=== PATIENT | male | born 1950 | race Caucasian/White ===

== ENCOUNTER 2021-04-13 13:04 | Inpatient (IN) | payer OTHER ==
[2021-04-13 13:45] VITALS: BMI 27.0
[2021-04-13 16:16] LABS: BASO % 0.2 % (0-2.0); EOS % 0.1 % (0-4.5); HEMATOCRIT 38.7 % (35.4-49); HEMOGLOBIN 12.7 GM/dL (11.7-16.9); LYMPH % 6.3 % (8-40); MCH 29.4 pg (25.7-33.7); MCHC 32.8 g/dl (32.0-35.9); MEAN CELL VOLUME 89.8 fl (80-96); MEAN PLT VOLUME 7.6 fl (7.5-11.1); MONO % 6.3 % (3.8-10.2); NEUT % 87.1 % (42.8-82.8); PLATELET COUNT 301 K/MM3 (134-434); RBC 4.31 M/mm3 (4.00-5.60); RDW 14.2 % (11.9-15.9); VENOUS BASE EXCESS -5.3 mmol/L (-2-2); VENOUS O2 SATURATION 29.1 % (70-80); VENOUS PCO2 52.7 mmHg (38-52); VENOUS PH 7.246 (7.310-7.410); WHITE BLOOD COUNT 18.2 K/mm3 (4.0-10.0)
[2021-04-13 16:31] LABS: INR 1.21 (0.83-1.09); PROTHROMBIN TIME (PATIENT) 14.6 SEC (9.7-13.0)
[2021-04-13 16:33] LABS: ACTIVATED PTT 27.7 SECONDS (25.2-36.5)
[2021-04-13] MEDS ORDERED: SODIUM CHLORIDE 1,000 ML IV STA (16:37)
[2021-04-13 16:43] LABS: CHLORIDE 104 mmol/L (98-107); LACTIC ACID 4.1 mmol/L (0.4-2.0); SODIUM 138 mmol/L (136-145)
[2021-04-13 16:46] LABS: ALBUMIN 3.5 g/dl (3.4-5.0); CALCIUM 9.1 mg/dL (8.5-10.1)
[2021-04-13 16:47] LABS: ANION GAP 10 MMOL/L (8-16); BLOOD UREA NITROGEN 24.9 mg/dL (7-18); CO2 23 mmol/L (21-32); GLUCOSE,RANDOM 104 mg/dL (74-106); MAGNESIUM 2.1 mg/dL (1.8-2.4)
[2021-04-13 16:50] LABS: CREATININE 2.2 mg/dL (0.55-1.3); PHOSPHOROUS 2.9 mg/dL (2.5-4.9); SGOT/AST 17 U/L (15-37); SGPT/ALT 20 U/L (13-61)
[2021-04-13 16:51] LABS: BILIRUBIN,TOTAL 0.5 mg/dL (0.2-1); TOT PROT 8.4 g/dl (6.4-8.2)
[2021-04-13] MEDS ORDERED: SODIUM CHLORIDE 0.9% 500 ML INFUS.BAG IV ONE (16:51)
[2021-04-13 16:52] LABS: ALK PHOS 94 U/L (45-117)
[2021-04-13 17:21] LABS: EPI CELLS 4 /uL (0-25.1); HYALINE CASTS 1 /uL (0-3.1); PH,URINE 5.5 (5.0-8.0); URINE APPEARANCE TURBID; URINE BACTERIA >9,000 /uL (0-1359); URINE BILIRUBIN NEGATIVE (NEGATIVE); URINE COLOR YELLOW; URINE GLUCOSE (UA) NEGATIVE (NEGATIVE); URINE KETONE TRACE (NEGATIVE); URINE LEUK ESTERASE 3+ (NEGATIVE); URINE NITRITE POSITIVE (NEGATIVE); URINE PROTEIN 2+ (NEGATIVE); URINE RBC 31 /uL (0-23.9); URINE WBC 3149 /uL (0-25.8)
[2021-04-13] MEDS ORDERED: CEFTRIAXONE 1,000 MG in DEXTROSE 5%-WATER - 50 ML IVPB ONE (17:23)
[2021-04-13] MEDS ORDERED: cefTRIAXone SODIUM 1 GM VIAL ONE (17:28)
[2021-04-13 17:53] LABS: OSMOLALITY,SERUM 296 mosm/kg (278-305)
[2021-04-13 18:18] LABS: PHENCYCLIDINE,URINE NEGATIVE ng/ml (CUTOFF=25); URINE BARBITURATES NEGATIVE ng/ml (CUTOFF=200); URINE BENZODIAZEPINES NEGATIVE ng/ml (CUTOFF=200)
[2021-04-13 18:19] LABS: METHADONE, UR NEGATIVE ng/ml (CUTOFF=300)
[2021-04-13 18:25] LABS: COCAINE, UR NEGATIVE ng/ml (CUTOFF=300); OPIATES, URI NEGATIVE ng/ml (CUTOFF=300); URINE AMPHETAMINES NEGATIVE ng/ml (CUTOFF=500)
[2021-04-13] MEDS ORDERED: OXcarbazepine 300 MG/5 ML UNIT DOSE CUPS PO ONE (23:04)
[2021-04-13] MEDS ORDERED: levETIRAcetam 500 MG TABLET (FP) PO ONE ×2 (23:04→23:11)
[2021-04-14] MEDS ORDERED: DEXTROSE 5%-WATER - 50 ML IVPB ONE (01:21)
[2021-04-14] MEDS ORDERED: PIPERACILLIN/TAZOBACTAM 3.375 GM VIAL IVPB ONE (01:21)
[2021-04-14] MEDS ORDERED: ACETAMINOPHEN 1000 MG/100 ML VIAL (NON FORMULARY) IVPB ONE (01:45)
[2021-04-14] MEDS ORDERED: PIPERACILLIN/TAZOB 3.375 GM 3.375 GM in DEXTROSE 5%-WATER - 50 ML IVPB SCH (02:00)
[2021-04-14 07:10] LABS: BASO % 0.2 % (0-2.0); EOS % 0.2 % (0-4.5); HEMATOCRIT 33.9 % (35.4-49); HEMOGLOBIN 11.3 GM/dL (11.7-16.9); MCH 29.8 pg (25.7-33.7); MCHC 33.4 g/dl (32.0-35.9); MEAN PLT VOLUME 7.2 fl (7.5-11.1); MONO % 10.3 % (3.8-10.2); NEUT % 76.3 % (42.8-82.8); PLATELET COUNT 259 K/MM3 (134-434); RBC 3.81 M/mm3 (4.00-5.60); RDW 14.3 % (11.9-15.9); WHITE BLOOD COUNT 13.4 K/mm3 (4.0-10.0)
[2021-04-14 07:53] LABS: BLOOD UREA NITROGEN 19.8 mg/dL (7-18); CALCIUM 7.9 mg/dL (8.5-10.1); MAGNESIUM 1.9 mg/dL (1.8-2.4)
[2021-04-14 07:56] LABS: CREATININE 1.8 mg/dL (0.55-1.3)
[2021-04-14 07:57] LABS: BILIRUBIN,TOTAL 0.9 mg/dL (0.2-1); PHOSPHOROUS 3.6 mg/dL (2.5-4.9); TOT PROT 6.7 g/dl (6.4-8.2)
[2021-04-14 08:00] LABS: ALBUMIN 2.6 g/dl (3.4-5.0)
[2021-04-14] MEDS ORDERED: DEXTROSE 5%-WATER 100 ML IVPB ONE (09:03)
[2021-04-14] MEDS: CEFTRIAXONE 2 GM in DEXTROSE 5%-WATER 100 ML IVPB SCH (09:25)
[2021-04-14] MEDS: POLYETHYLENE GLYCOL 3350 119 GM BTL PO SCH (09:26)
[2021-04-14] MEDS: HEPARIN NA (PORCINE) 5,000 UNITS/ML 1ML VIAL SQ SCH ×2 (09:26→22:02)
[2021-04-14] MEDS: ACETAMINOPHEN 1000 MG/100 ML VIAL (NON FORMULARY) IVPB PRN ×3 (09:47→22:03)
[2021-04-14] MEDS: levETIRAcetam 500 MG TABLET (FP) PO SCH ×2 (10:17→22:03)
[2021-04-14] MEDS: OXcarbazepine 300 MG/5 ML 250 ML BULK BOTTLE PO SCH ×2 (10:17→23:08)
[2021-04-14] MEDS: amLODIPine BESYLATE 10 MG TABLET (FP) PO SCH (10:17)
[2021-04-14] MEDS: SODIUM CHLORIDE 0.45% 1,000 ML IV SCH (10:19)
[2021-04-14] MEDS ORDERED: OXcarbazepine 300 MG TABLET (UD) PO SCH (10:30)
[2021-04-15] MEDS ORDERED: DEXTROSE 5%-WATER 100 ML IVPB ONE ×2 (08:35→12:21)
[2021-04-15] MEDS ORDERED: ACETAMINOPHEN 325 MG TABLET (FP) PO PRN (08:43)
[2021-04-15] MEDS: POLYETHYLENE GLYCOL 3350 119 GM BTL PO SCH (09:11)
[2021-04-15] MEDS: HEPARIN NA (PORCINE) 5,000 UNITS/ML 1ML VIAL SQ SCH ×2 (09:12→21:20)
[2021-04-15] MEDS: levETIRAcetam 500 MG TABLET (FP) PO SCH ×2 (09:12→21:20)
[2021-04-15] MEDS: CEFTRIAXONE 2 GM in DEXTROSE 5%-WATER 100 ML IVPB SCH (09:12)
[2021-04-15 10:00] LABS: BASO % 0.4 % (0-2.0); EOS % 0.4 % (0-4.5); HEMOGLOBIN 11.4 GM/dL (11.7-16.9); MCH 29.1 pg (25.7-33.7); MCHC 32.7 g/dl (32.0-35.9); MEAN CELL VOLUME 89.2 fl (80-96); MONO % 8.7 % (3.8-10.2); NEUT % 79.5 % (42.8-82.8); PLATELET COUNT 307 K/MM3 (134-434); RBC 3.93 M/mm3 (4.00-5.60); RDW 14.5 % (11.9-15.9)
[2021-04-15] MEDS ORDERED: VANCOMYCIN 1 GM in D5W (PRE-DOCKED) 1,000 MG/250 ML IVPB SCH (10:00)
[2021-04-15 10:27] LABS: ALBUMIN 2.7 g/dl (3.4-5.0); BLOOD UREA NITROGEN 16.4 mg/dL (7-18)
[2021-04-15 10:29] LABS: CREATININE 1.5 mg/dL (0.55-1.3)
[2021-04-15 10:30] LABS: TOT PROT 6.9 g/dl (6.4-8.2)
[2021-04-15] MEDS: SODIUM CHLORIDE 0.45% 1,000 ML IV SCH (10:35)
[2021-04-15 10:37] LABS: BILIRUBIN,TOTAL 0.4 mg/dL (0.2-1)
[2021-04-15] MEDS: amLODIPine BESYLATE 10 MG TABLET (FP) PO SCH (10:53)
[2021-04-15] MEDS ORDERED: PT OWN MED DRAWER 7, Y5N ONE ×2 (11:21→19:55)
[2021-04-15] MEDS: OXcarbazepine 300 MG/5 ML 250 ML BULK BOTTLE PO SCH ×2 (11:24→21:21)
[2021-04-15] MEDS ORDERED: metoPROLOL SUCCINATE 25 MG TAB.SR.24H (FP) PO ONE (12:11)
[2021-04-15] MEDS ORDERED: ACETAMINOPHEN 1000 MG/100 ML VIAL (NON FORMULARY) IVPB PRN (12:13)
[2021-04-15] MEDS ORDERED: MEROPENEM 1 GM VIAL (RESTRICTED TO ID) IVPB ONE (12:21)
[2021-04-15] MEDS ORDERED: MEROPENEM 1 GM in DEXTROSE 5%-WATER 100 ML IVPB SCH ×2 (13:00→18:00)
[2021-04-15] MEDS: MEROPENEM 500 MG in DEXTROSE 5%-WATER 100 ML IVPB SCH ×2 (14:30→17:22)
[2021-04-15] MEDS ORDERED: MEROPENEM 500 MG VIAL (RESTRICTED TO ID) IVPB ONE (17:19)
[2021-04-16] MEDS ORDERED: DEXTROSE 5%-WATER 100 ML IVPB ONE ×2 (01:00→09:23)
[2021-04-16] MEDS ORDERED: MEROPENEM 500 MG VIAL (RESTRICTED TO ID) IVPB ONE ×2 (01:00→09:22)
[2021-04-16] MEDS: MEROPENEM 500 MG in DEXTROSE 5%-WATER 100 ML IVPB SCH ×3 (01:11→18:41)
[2021-04-16 07:45] LABS: BASO % 0.8 % (0-2.0); EOS % 0.4 % (0-4.5); HEMATOCRIT 32.3 % (35.4-49); HEMOGLOBIN 10.8 GM/dL (11.7-16.9); LYMPH % 17.9 % (8-40); MCH 29.4 pg (25.7-33.7); MCHC 33.4 g/dl (32.0-35.9); MEAN CELL VOLUME 87.9 fl (80-96); NEUT % 72.9 % (42.8-82.8); PLATELET COUNT 299 K/MM3 (134-434); RBC 3.67 M/mm3 (4.00-5.60); RDW 14.5 % (11.9-15.9); WHITE BLOOD COUNT 11.4 K/mm3 (4.0-10.0)
[2021-04-16 07:51] LABS: ALBUMIN 2.3 g/dl (3.4-5.0); BLOOD UREA NITROGEN 12.4 mg/dL (7-18); CALCIUM 7.6 mg/dL (8.5-10.1)
[2021-04-16 07:55] LABS: CREATININE 1.1 mg/dL (0.55-1.3)
[2021-04-16 07:56] LABS: BILIRUBIN,TOTAL 0.4 mg/dL (0.2-1); TOT PROT 6.4 g/dl (6.4-8.2)
[2021-04-16] MEDS ORDERED: PT OWN MED DRAWER 7, Y5N ONE ×3 (09:23→21:31)
[2021-04-16] MEDS: levETIRAcetam 500 MG TABLET (FP) PO SCH ×2 (09:30→21:23)
[2021-04-16] MEDS: OXcarbazepine 300 MG/5 ML 250 ML BULK BOTTLE PO SCH ×2 (09:31→21:23)
[2021-04-16] MEDS: HEPARIN NA (PORCINE) 5,000 UNITS/ML 1ML VIAL SQ SCH ×2 (09:31→21:23)
[2021-04-16] MEDS: POLYETHYLENE GLYCOL 3350 119 GM BTL PO SCH (09:31)
[2021-04-16] MEDS: amLODIPine BESYLATE 10 MG TABLET (FP) PO SCH (09:33)
[2021-04-16] MEDS ORDERED: VANCOMYCIN 1 GRAM (PRE-DOCKED) 1,000 MG/250 ML BAG IVPB SCH (10:00)
[2021-04-16] MEDS: SODIUM CHLORIDE 0.45% 1,000 ML IV SCH (17:35)
[2021-04-16] MEDS ORDERED: guaiFENesin/D-METHORPHAN HB 10 ML UNIT-DOSE CUPS PO ONE (22:51)
[2021-04-17] MEDS ORDERED: MEROPENEM 500 MG VIAL (RESTRICTED TO ID) IVPB ONE ×2 (01:31→09:20)
[2021-04-17] MEDS ORDERED: DEXTROSE 5%-WATER 100 ML IVPB ONE ×2 (01:31→09:20)
[2021-04-17] MEDS: MEROPENEM 500 MG in DEXTROSE 5%-WATER 100 ML IVPB SCH ×3 (01:39→18:37)
[2021-04-17 07:11] LABS: BASO % 0.7 % (0-2.0); EOS % 1.6 % (0-4.5); HEMATOCRIT 33.1 % (35.4-49); HEMOGLOBIN 11.1 GM/dL (11.7-16.9); LYMPH % 21.7 % (8-40); MCH 29.5 pg (25.7-33.7); MCHC 33.7 g/dl (32.0-35.9); MEAN CELL VOLUME 87.6 fl (80-96); MEAN PLT VOLUME 7.7 fl (7.5-11.1); MONO % 9.9 % (3.8-10.2); NEUT % 66.1 % (42.8-82.8); PLATELET COUNT 343 K/MM3 (134-434); RBC 3.78 M/mm3 (4.00-5.60); RDW 14.2 % (11.9-15.9); WHITE BLOOD COUNT 8.3 K/mm3 (4.0-10.0)
[2021-04-17 07:43] LABS: ALBUMIN 2.4 g/dl (3.4-5.0); BLOOD UREA NITROGEN 9.8 mg/dL (7-18)
[2021-04-17 07:46] LABS: CREATININE 0.9 mg/dL (0.55-1.3); MAGNESIUM 1.9 mg/dL (1.8-2.4)
[2021-04-17 07:47] LABS: BILIRUBIN,TOTAL 0.6 mg/dL (0.2-1); CALCIUM 8.3 mg/dL (8.5-10.1); TOT PROT 6.6 g/dl (6.4-8.2)
[2021-04-17 07:59] LABS: PHOSPHOROUS 2.4 mg/dL (2.5-4.9)
[2021-04-17] MEDS ORDERED: PT OWN MED DRAWER 7, Y5N ONE ×2 (09:21→19:41)
[2021-04-17] MEDS: HEPARIN NA (PORCINE) 5,000 UNITS/ML 1ML VIAL SQ SCH ×2 (09:26→21:11)
[2021-04-17] MEDS: amLODIPine BESYLATE 10 MG TABLET (FP) PO SCH (09:26)
[2021-04-17] MEDS: levETIRAcetam 500 MG TABLET (FP) PO SCH ×2 (09:26→21:11)
[2021-04-17] MEDS: OXcarbazepine 300 MG/5 ML 250 ML BULK BOTTLE PO SCH ×2 (09:26→21:11)
[2021-04-17] MEDS: POLYETHYLENE GLYCOL 3350 119 GM BTL PO SCH (09:29)
[2021-04-17] MEDS ORDERED: NAPH,MB-DB/K PH,MBDB POWDER PACKET PO ONE (10:30)
[2021-04-17] MEDS: SODIUM CHLORIDE 0.45% 1,000 ML IV SCH (12:17)
[2021-04-17] MEDS: APIXABAN 5 MG TABLET PO SCH ×2 (13:16→21:11)
[2021-04-18] MEDS ORDERED: DEXTROSE 5%-WATER 100 ML IVPB ONE (00:58)
[2021-04-18] MEDS ORDERED: MEROPENEM 500 MG VIAL (RESTRICTED TO ID) IVPB ONE (00:58)
[2021-04-18] MEDS: MEROPENEM 500 MG in DEXTROSE 5%-WATER 100 ML IVPB SCH ×2 (01:08→11:29)
[2021-04-18 07:21] LABS: BASO % 1.1 % (0-2.0); EOS % 1.8 % (0-4.5); HEMATOCRIT 34.5 % (35.4-49); HEMOGLOBIN 11.9 GM/dL (11.7-16.9); LYMPH % 29.7 % (8-40); MCH 30.1 pg (25.7-33.7); MCHC 34.6 g/dl (32.0-35.9); MEAN CELL VOLUME 87.1 fl (80-96); MEAN PLT VOLUME 7.4 fl (7.5-11.1); MONO % 9.8 % (3.8-10.2); NEUT % 57.6 % (42.8-82.8); PLATELET COUNT 457 K/MM3 (134-434); RBC 3.96 M/mm3 (4.00-5.60); RDW 14.4 % (11.9-15.9); WHITE BLOOD COUNT 7.7 K/mm3 (4.0-10.0)
[2021-04-18 07:49] LABS: ALBUMIN 2.7 g/dl (3.4-5.0); BLOOD UREA NITROGEN 11.8 mg/dL (7-18); CALCIUM 8.5 mg/dL (8.5-10.1)
[2021-04-18 07:50] LABS: MAGNESIUM 1.9 mg/dL (1.8-2.4)
[2021-04-18 07:52] LABS: CREATININE 1.1 mg/dL (0.55-1.3); PHOSPHOROUS 3.2 mg/dL (2.5-4.9)
[2021-04-18 07:54] LABS: BILIRUBIN,TOTAL 0.6 mg/dL (0.2-1); TOT PROT 7.4 g/dl (6.4-8.2)
[2021-04-18] MEDS ORDERED: PT OWN MED DRAWER 7, Y5N ONE ×2 (08:52→11:11)
[2021-04-18] MEDS: APIXABAN 5 MG TABLET PO SCH (09:23)
[2021-04-18] MEDS: amLODIPine BESYLATE 10 MG TABLET (FP) PO SCH (09:23)
[2021-04-18] MEDS: levETIRAcetam 500 MG TABLET (FP) PO SCH (09:23)
[2021-04-18] MEDS: POLYETHYLENE GLYCOL 3350 119 GM BTL PO SCH (09:30)
[2021-04-18] MEDS ORDERED: OXcarbazepine 300 MG TABLET (UD) PO SCH (10:00)
[2021-04-18 14:04] VITALS: BP 142/69; PULSE 103; TEMP 97.7
== END 2021-04-18 18:30 | disposition home or self-care (01) | DRG 871 ==
LOC: JER 13:04 → JERBED 16:39 → J4W 23:55
PROVIDERS: ADMIT Internal Medicine; ATTEND Internal Medicine
DX: A41.89 Other specified sepsis (principal); G93.41 Metabolic encephalopathy; N17.9 Acute kidney failure, unspecified; E87.2 Acidosis; N39.0 Urinary tract infection, site not specified; K21.9 Gastro-esophageal reflux disease without esophagitis; F41.8 Other specified anxiety disorders; G40.909 Epilepsy, unspecified, not intractable, without status epilepticus; E86.0 Dehydration; R41.82 Altered mental status, unspecified; B96.20 Unspecified Escherichia coli [E. coli] as the cause of diseases classified elsewhere; I12.9 Hypertensive chronic kidney disease with stage 1 through stage 4 chronic kidney disease, or unspecified chronic kidney disease; N18.9 Chronic kidney disease, unspecified; N28.1 Cyst of kidney, acquired; D72.829 Elevated white blood cell count, unspecified; I48.0 Paroxysmal atrial fibrillation; Z86.73 Personal history of transient ischemic attack (TIA), and cerebral infarction without residual deficits
CPT/HCPCS: 36415; 70450-TC; 71045-TC-FY; 71250-TC; 74176-TC; 76775-TC; 80053; 80177; 80307; 81003; 82140; 82550; 82570; 82803; 82962; 83605; 83735; 83930; 84100; 84300; 84484; 85025; 85610; 85730; 86850; 86900; 86901; 87040; 87086; 87186; 93005; 93010; 93306-TC; 97116-GP; 97161-GP; 99285-25; C9803; J0131; J1644; U0003; U0005

== ENCOUNTER 2021-06-04 17:41 | Inpatient (IN) | payer OTHER ==
[2021-06-04 20:16] LABS: BASO % 0.4 % (0-2.0); HEMATOCRIT 38.4 % (35.4-49); HEMOGLOBIN 12.9 GM/dL (11.7-16.9); MCHC 33.7 g/dl (32.0-35.9); MEAN PLT VOLUME 7.5 fl (7.5-11.1); MONO % 7.5 % (3.8-10.2); NEUT % 83.1 % (42.8-82.8); PLATELET COUNT 232 10^3/uL (134-434); RBC 4.46 M/mm3 (4.00-5.60); RDW 14.9 % (11.9-15.9); WHITE BLOOD COUNT 23.2 K/mm3 (4.0-10.0)
[2021-06-04 20:46] LABS: CHLORIDE 106 mmol/L (98-107); SODIUM 136 mmol/L (136-145)
[2021-06-04 20:48] LABS: CALCIUM 8.5 mg/dL (8.5-10.1)
[2021-06-04 20:49] LABS: ALBUMIN 3.3 g/dl (3.4-5.0); ANION GAP 8 MMOL/L (8-16); BLOOD UREA NITROGEN 14.9 mg/dL (7-18); CO2 22 mmol/L (21-32); GLUCOSE,RANDOM 113 mg/dL (74-106)
[2021-06-04 20:52] LABS: CREATININE 1.5 mg/dL (0.55-1.3); SGOT/AST 55 U/L (15-37); SGPT/ALT 26 U/L (13-61)
[2021-06-04 20:53] LABS: BILIRUBIN,TOTAL 0.6 mg/dL (0.2-1); TOT PROT 8.1 g/dl (6.4-8.2)
[2021-06-04 20:55] LABS: ALK PHOS 102 U/L (45-117)
[2021-06-04] MEDS ORDERED: OXcarbazepine 300 MG/5 ML 250 ML BULK BOTTLE PO ONE (22:27)
[2021-06-04] MEDS ORDERED: levETIRAcetam 500 MG TABLET (FP) PO ONE ×2 (22:27→22:40)
[2021-06-04 22:51] LABS: EPI CELLS 1 /uL (0-25.1); HYALINE CASTS 6 /uL (0-3.1); PH,URINE 5.5 (5.0-8.0); URINE APPEARANCE CLOUDY; URINE BACTERIA >9,000 /uL (0-1359); URINE BILIRUBIN NEGATIVE (NEGATIVE); URINE COLOR YELLOW; URINE GLUCOSE (UA) NEGATIVE (NEGATIVE); URINE KETONE NEGATIVE (NEGATIVE); URINE LEUK ESTERASE 2+ (NEGATIVE); URINE NITRITE POSITIVE (NEGATIVE); URINE PROTEIN NEGATIVE (NEGATIVE); URINE RBC 13 /uL (0-23.9); URINE UROBILINOGEN 0.2 mg/dL (0.2-1.0); URINE WBC 748 /uL (0-25.8)
[2021-06-04] MEDS ORDERED: CEFTRIAXONE 1 GM in DEXTROSE 5%-WATER - 50 ML IVPB ONE (22:59)
[2021-06-04] MEDS ORDERED: CEFTRIAXONE 1 GM/50 ML BAG ONE (23:07)
[2021-06-04 23:21] LABS: ANISOCYTOSIS 1+; MACROCYTOSIS 0; PLATELET ESTIMATE NORMAL
[2021-06-05] MEDS ORDERED: SODIUM CHLORIDE 1,000 ML IV SCH ×2 (01:00)
[2021-06-05] MEDS ORDERED: DOCUSATE SODIUM 100 MG CAPSULE (FP) PO ONE ×2 (01:28→10:39)
[2021-06-05] MEDS: DOCUSATE SODIUM 100 MG CAPSULE (FP) PO SCH ×3 (01:29→21:01)
[2021-06-05] MEDS ORDERED: NITROFURANTOIN MACROCRYSTAL 50 MG CAPSULE (FP) PO SCH ×2 (01:30→06:00)
[2021-06-05 05:51] LABS: HEMATOCRIT 38.3 % (35.4-49); HEMOGLOBIN 12.9 GM/dL (11.7-16.9); MCH 29.1 pg (25.7-33.7); MCHC 33.7 g/dl (32.0-35.9); MEAN CELL VOLUME 86.3 fl (80-96); MEAN PLT VOLUME 7.1 fl (7.5-11.1); PLATELET COUNT 191 10^3/uL (134-434); RBC 4.44 M/mm3 (4.00-5.60); RDW 14.9 % (11.9-15.9); WHITE BLOOD COUNT 22.2 K/mm3 (4.0-10.0)
[2021-06-05] MEDS ORDERED: NITROFURANTOIN MACROCRYSTAL 50 MG CAPSULE (FP) ONE (05:57)
[2021-06-05 06:12] LABS: ALBUMIN 3.4 g/dl (3.4-5.0); CALCIUM 8.5 mg/dL (8.5-10.1)
[2021-06-05 06:13] LABS: BLOOD UREA NITROGEN 18.1 mg/dL (7-18); MAGNESIUM 1.7 mg/dL (1.8-2.4)
[2021-06-05 06:16] LABS: CREATININE 1.5 mg/dL (0.55-1.3)
[2021-06-05 06:17] LABS: BILIRUBIN,TOTAL 0.5 mg/dL (0.2-1); TOT PROT 7.6 g/dl (6.4-8.2)
[2021-06-05] MEDS ORDERED: OXCARBAZEPINE 600 MG PO SCH (10:00)
[2021-06-05] MEDS ORDERED: PIPERACILLIN/TAZOB 2.25 GM 2.25 GM in DEXTROSE 5%-WATER - 50 ML IVPB SCH (10:00)
[2021-06-05] MEDS ORDERED: LOSARTAN POTASSIUM 50 MG TABLET PO SCH (10:00)
[2021-06-05] MEDS ORDERED: levETIRAcetam 500 MG TABLET (FP) PO ONE (10:39)
[2021-06-05] MEDS ORDERED: metoPROLOL SUCCINATE 25 MG TAB.SR.24H (FP) ONE (10:39)
[2021-06-05] MEDS ORDERED: amLODIPine BESYLATE 5 MG TABLET (FP) ONE (10:39)
[2021-06-05] MEDS ORDERED: PIPERACILLIN/TAZOB 2.25 GM 2.25 GM/50 ML BAG IVPB ONE (10:40)
[2021-06-05] MEDS: levETIRAcetam 500 MG TABLET (FP) PO SCH ×2 (10:53→21:02)
[2021-06-05] MEDS: amLODIPine BESYLATE 5 MG TABLET (FP) PO SCH (10:53)
[2021-06-05] MEDS ORDERED: ACETAMINOPHEN 325 MG TABLET (FP) ONE (10:58)
[2021-06-05] MEDS: ACETAMINOPHEN 325 MG TABLET (FP) PO PRN ×2 (11:03→21:35)
[2021-06-05] MEDS: OXcarbazepine 300 MG TABLET (UD) PO SCH ×2 (11:03→21:34)
[2021-06-05] MEDS: metoPROLOL SUCCINATE 25 MG TAB.SR.24H (FP) PO SCH (12:47)
[2021-06-05] MEDS ORDERED: GENTAMICIN INJECTION 100 MG in SODIUM CHLORIDE 97.5 ML IVPB ONE (15:00)
[2021-06-05 16:48] VITALS: BMI 25.7
[2021-06-05] MEDS ORDERED: DEXTROSE 5%-WATER - 50 ML IVPB ONE (18:49)
[2021-06-05] MEDS ORDERED: PIPERACILLIN/TAZOBACTAM 3.375 GM VIAL IVPB ONE (18:49)
[2021-06-05] MEDS: PIPERACILLIN/TAZOB 3.375 GM 3.375 GM in DEXTROSE 5%-WATER - 50 ML IVPB SCH (18:50)
[2021-06-05] MEDS: APIXABAN 5 MG TABLET PO SCH (21:02)
[2021-06-05] MEDS ORDERED: MAGNESIUM 1GM/D5W - 1 GM/100 ML IVPB IVPB ONE (21:32)
[2021-06-05] MEDS ORDERED: POTASSIUM CHLORIDE TABS 20 MEQ TABLET.ER (FP) PO ONE (21:32)
[2021-06-06] MEDS ORDERED: PIPERACILLIN/TAZOBACTAM 3.375 GM VIAL IVPB ONE ×3 (02:03→17:22)
[2021-06-06 02:04] LABS: ALBUMIN 3.2 g/dl (3.4-5.0); BLOOD UREA NITROGEN 22.6 mg/dL (7-18); CALCIUM 8.4 mg/dL (8.5-10.1); MAGNESIUM 2.4 mg/dL (1.8-2.4)
[2021-06-06 02:07] LABS: CREATININE 1.4 mg/dL (0.55-1.3)
[2021-06-06 02:09] LABS: BILIRUBIN,TOTAL 0.5 mg/dL (0.2-1); TOT PROT 7.2 g/dl (6.4-8.2)
[2021-06-06] MEDS: PIPERACILLIN/TAZOB 3.375 GM 3.375 GM in DEXTROSE 5%-WATER - 50 ML IVPB SCH ×3 (02:20→17:24)
[2021-06-06 07:59] LABS: BASO % 0.4 % (0-2.0); EOS % 3.2 % (0-4.5); HEMATOCRIT 36.4 % (35.4-49); HEMOGLOBIN 12.4 GM/dL (11.7-16.9); LYMPH % 11.5 % (8-40); MCH 29.8 pg (25.7-33.7); MCHC 34.1 g/dl (32.0-35.9); MEAN CELL VOLUME 87.2 fl (80-96); MEAN PLT VOLUME 7.5 fl (7.5-11.1); MONO % 7.4 % (3.8-10.2); NEUT % 77.5 % (42.8-82.8); PLATELET COUNT 203 10^3/uL (134-434); RBC 4.18 M/mm3 (4.00-5.60); RDW 14.9 % (11.9-15.9)
[2021-06-06] MEDS ORDERED: DEXTROSE 5%-WATER - 50 ML IVPB ONE ×2 (09:18→17:22)
[2021-06-06] MEDS: DOCUSATE SODIUM 100 MG CAPSULE (FP) PO SCH ×2 (10:02→21:21)
[2021-06-06] MEDS: APIXABAN 5 MG TABLET PO SCH ×2 (10:03→21:21)
[2021-06-06] MEDS: amLODIPine BESYLATE 5 MG TABLET (FP) PO SCH (10:03)
[2021-06-06] MEDS: levETIRAcetam 500 MG TABLET (FP) PO SCH ×2 (10:03→21:22)
[2021-06-06] MEDS: metoPROLOL SUCCINATE 25 MG TAB.SR.24H (FP) PO SCH (10:03)
[2021-06-06] MEDS: OXcarbazepine 300 MG TABLET (UD) PO SCH ×2 (10:05→21:21)
[2021-06-06] MEDS ORDERED: PT OWN MED DRAWER 7, Y5N ONE (21:02)
[2021-06-07] MEDS ORDERED: DEXTROSE 5%-WATER - 50 ML IVPB ONE ×3 (02:52→17:09)
[2021-06-07] MEDS ORDERED: PIPERACILLIN/TAZOBACTAM 3.375 GM VIAL IVPB ONE ×3 (02:52→17:09)
[2021-06-07] MEDS: PIPERACILLIN/TAZOB 3.375 GM 3.375 GM in DEXTROSE 5%-WATER - 50 ML IVPB SCH ×3 (03:11→17:20)
[2021-06-07 07:33] LABS: BASO % 1.3 % (0-2.0); EOS % 4.6 % (0-4.5); HEMOGLOBIN 12.8 GM/dL (11.7-16.9); LYMPH % 31.1 % (8-40); MCH 29.3 pg (25.7-33.7); MCHC 33.8 g/dl (32.0-35.9); MEAN CELL VOLUME 86.8 fl (80-96); MEAN PLT VOLUME 7.4 fl (7.5-11.1); MONO % 10.9 % (3.8-10.2); NEUT % 52.1 % (42.8-82.8); PLATELET COUNT 221 10^3/uL (134-434); RBC 4.38 M/mm3 (4.00-5.60); RDW 14.5 % (11.9-15.9); WHITE BLOOD COUNT 7.9 K/mm3 (4.0-10.0)
[2021-06-07 07:50] LABS: CALCIUM 8.7 mg/dL (8.5-10.1)
[2021-06-07 07:51] LABS: ALBUMIN 3.2 g/dl (3.4-5.0); BLOOD UREA NITROGEN 15.2 mg/dL (7-18); MAGNESIUM 2.2 mg/dL (1.8-2.4)
[2021-06-07 07:54] LABS: CREATININE 1.2 mg/dL (0.55-1.3); PHOSPHOROUS 3.1 mg/dL (2.5-4.9)
[2021-06-07 07:56] LABS: BILIRUBIN,TOTAL 0.5 mg/dL (0.2-1); TOT PROT 7.6 g/dl (6.4-8.2)
[2021-06-07] MEDS ORDERED: PT OWN MED DRAWER 7, Y5N ONE (09:15)
[2021-06-07] MEDS: APIXABAN 5 MG TABLET PO SCH ×2 (09:50→21:02)
[2021-06-07] MEDS: amLODIPine BESYLATE 5 MG TABLET (FP) PO SCH (09:50)
[2021-06-07] MEDS: DOCUSATE SODIUM 100 MG CAPSULE (FP) PO SCH ×2 (09:50→21:02)
[2021-06-07] MEDS: levETIRAcetam 500 MG TABLET (FP) PO SCH ×2 (09:50→21:02)
[2021-06-07] MEDS: OXcarbazepine 300 MG TABLET (UD) PO SCH ×2 (09:50→21:02)
[2021-06-07] MEDS: metoPROLOL SUCCINATE 25 MG TAB.SR.24H (FP) PO SCH (09:51)
[2021-06-08] MEDS ORDERED: DEXTROSE 5%-WATER - 50 ML IVPB ONE ×2 (00:43→10:55)
[2021-06-08] MEDS ORDERED: PIPERACILLIN/TAZOBACTAM 3.375 GM VIAL IVPB ONE ×2 (00:43→10:55)
[2021-06-08] MEDS: PIPERACILLIN/TAZOB 3.375 GM 3.375 GM in DEXTROSE 5%-WATER - 50 ML IVPB SCH ×3 (01:23→18:15)
[2021-06-08 09:12] VITALS: BP 123/77; PULSE 71; TEMP 97.6
[2021-06-08] MEDS ORDERED: PT OWN MED DRAWER 7, Y5N ONE (10:05)
[2021-06-08] MEDS: levETIRAcetam 500 MG TABLET (FP) PO SCH (10:07)
[2021-06-08] MEDS: OXcarbazepine 300 MG TABLET (UD) PO SCH (10:07)
[2021-06-08] MEDS: amLODIPine BESYLATE 5 MG TABLET (FP) PO SCH (10:56)
[2021-06-08] MEDS: DOCUSATE SODIUM 100 MG CAPSULE (FP) PO SCH (10:57)
[2021-06-08] MEDS: APIXABAN 5 MG TABLET PO SCH (10:57)
[2021-06-08 13:12] LABS: BASO % 0.6 % (0-2.0); EOS % 3.1 % (0-4.5); HEMATOCRIT 41.1 % (35.4-49); MCH 29.5 pg (25.7-33.7); MEAN CELL VOLUME 86.7 fl (80-96); MEAN PLT VOLUME 7.2 fl (7.5-11.1); MONO % 10.6 % (3.8-10.2); NEUT % 49.7 % (42.8-82.8); PLATELET COUNT 303 10^3/uL (134-434); RBC 4.75 M/mm3 (4.00-5.60); RDW 14.5 % (11.9-15.9); WHITE BLOOD COUNT 6.4 K/mm3 (4.0-10.0)
[2021-06-08 13:31] LABS: CALCIUM 9.4 mg/dL (8.5-10.1)
[2021-06-08 13:32] LABS: ALBUMIN 3.4 g/dl (3.4-5.0); BLOOD UREA NITROGEN 14.3 mg/dL (7-18); MAGNESIUM 2.1 mg/dL (1.8-2.4)
[2021-06-08 13:35] LABS: CREATININE 1.3 mg/dL (0.55-1.3)
[2021-06-08 13:37] LABS: BILIRUBIN,TOTAL 0.3 mg/dL (0.2-1); TOT PROT 8.2 g/dl (6.4-8.2)
== END 2021-06-08 18:10 | disposition home or self-care (01) | DRG 101 ==
LOC: JER 17:41 → JERBED 22:53 → J4W 06-05 18:42
PROVIDERS: ADMIT Internal Medicine; ATTEND Internal Medicine
DX: G40.909 Epilepsy, unspecified, not intractable, without status epilepticus (principal); N39.0 Urinary tract infection, site not specified; I47.1 Supraventricular tachycardia; N17.9 Acute kidney failure, unspecified; I48.91 Unspecified atrial fibrillation; D72.829 Elevated white blood cell count, unspecified; E87.5 Hyperkalemia; E86.9 Volume depletion, unspecified
CPT/HCPCS: 36415; 70450-TC; 71045-TC-FY; 72125-TC; 80053; 80156; 80183; 81003; 82550; 82553; 83735; 84100; 84484; 85025; 85027; 87040; 87086; 87186; 93005; 93010; 97116-GP; 97161-GP; 99285-25; C9803; U0003; U0005

== ENCOUNTER 2021-07-23 14:44 | Inpatient (IN) | payer OTHER ==
[2021-07-23 19:42] LABS: BASO % 0.6 % (0-2.0); HEMOGLOBIN 12.5 GM/dL (11.7-16.9); LYMPH % 11.8 % (8-40); MCH 30.1 pg (25.7-33.7); MCHC 33.7 g/dl (32.0-35.9); MEAN CELL VOLUME 89.4 fl (80-96); MEAN PLT VOLUME 7.2 fl (7.5-11.1); MONO % 12.3 % (3.8-10.2); NEUT % 75.3 % (42.8-82.8); PLATELET COUNT 244 10^3/uL (134-434); RBC 4.14 M/mm3 (4.00-5.60); RDW 15.7 % (11.9-15.9); WHITE BLOOD COUNT 19.4 K/mm3 (4.0-10.0)
[2021-07-23 19:48] LABS: INR 1.26 (0.83-1.09); PROTHROMBIN TIME (PATIENT) 15.1 SEC (9.7-13.0)
[2021-07-23 19:51] LABS: ACTIVATED PTT 26.6 SECONDS (25.2-36.5)
[2021-07-23 20:01] LABS: CHLORIDE 105 mmol/L (98-107); SODIUM 139 mmol/L (136-145)
[2021-07-23 20:04] LABS: CALCIUM 8.7 mg/dL (8.5-10.1)
[2021-07-23 20:05] LABS: ALBUMIN 3.4 g/dl (3.4-5.0); ANION GAP 8 MMOL/L (8-16); BLOOD UREA NITROGEN 13.5 mg/dL (7-18); CO2 26 mmol/L (21-32); GLUCOSE,RANDOM 114 mg/dL (74-106)
[2021-07-23 20:06] LABS: EPI CELLS 1 /uL (0-25.1); HYALINE CASTS 1 /uL (0-3.1); URINE APPEARANCE CLOUDY; URINE BACTERIA >9,000 /uL (0-1359); URINE BILIRUBIN NEGATIVE (NEGATIVE); URINE COLOR DK YELLOW; URINE GLUCOSE (UA) NEGATIVE (NEGATIVE); URINE KETONE TRACE (NEGATIVE); URINE LEUK ESTERASE 3+ (NEGATIVE); URINE NITRITE POSITIVE (NEGATIVE); URINE PROTEIN 1+ (NEGATIVE); URINE RBC 12 /uL (0-23.9); URINE WBC 1103 /uL (0-25.8)
[2021-07-23 20:07] LABS: CREATININE 1.4 mg/dL (0.55-1.3)
[2021-07-23 20:08] LABS: CHOLESTEROL 184 mg/dL (50-200); SGOT/AST 16 U/L (15-37); SGPT/ALT 21 U/L (13-61); TRIGLYCERIDES 102 mg/dL (0-150)
[2021-07-23 20:09] LABS: BILIRUBIN,TOTAL 0.7 mg/dL (0.2-1); LDL CHOLESTEROL (ONLY SJRH) 118 mg/dL (5-100); TOT PROT 7.6 g/dl (6.4-8.2)
[2021-07-23 20:10] LABS: ALK PHOS 92 U/L (45-117); HDL CHOLESTEROL 38 mg/dL (40-60)
[2021-07-23] MEDS ORDERED: PIPERACILLIN/TAZOB 3.375 GM 3.375 GM in DEXTROSE 5%-WATER - 50 ML IVPB ONE (20:15)
[2021-07-23] MEDS ORDERED: SODIUM CHLORIDE 0.9% 500 ML INFUS.BAG IV ONE (20:25)
[2021-07-23] MEDS ORDERED: PIPERACILLIN/TAZOB 3.375 GM 3.375 GM/50 ML BAG IVPB ONE (20:25)
[2021-07-23 21:17] LABS: ANISOCYTOSIS 1+; MACROCYTOSIS 1+; PLATELET ESTIMATE NORMAL
[2021-07-23] MEDS ORDERED: SODIUM CHLORIDE 1,000 ML IV SCH (22:00)
[2021-07-23] MEDS ORDERED: levETIRAcetam 500 MG TABLET (FP) PO STA (22:58)
[2021-07-23] MEDS ORDERED: APIXABAN 5 MG TABLET PO STA (23:00)
[2021-07-23] MEDS ORDERED: APIXABAN 5 MG TABLET ONE (23:13)
[2021-07-23] MEDS ORDERED: levETIRAcetam 500 MG TABLET (FP) PO ONE (23:13)
[2021-07-24 01:27] LABS: HEMATOCRIT 30.9 % (35.4-49); HEMOGLOBIN 10.5 GM/dL (11.7-16.9); MCH 29.9 pg (25.7-33.7); MCHC 33.9 g/dl (32.0-35.9); MEAN CELL VOLUME 88.4 fl (80-96); MEAN PLT VOLUME 7.3 fl (7.5-11.1); PLATELET COUNT 208 10^3/uL (134-434); RDW 15.2 % (11.9-15.9); WHITE BLOOD COUNT 16.6 K/mm3 (4.0-10.0)
[2021-07-24 01:45] LABS: INR 1.38 (0.83-1.09); PROTHROMBIN TIME (PATIENT) 16.6 SEC (9.7-13.0)
[2021-07-24 01:47] LABS: ACTIVATED PTT 28.8 SECONDS (25.2-36.5)
[2021-07-24] MEDS ORDERED: MEROPENEM 1 GM VIAL (RESTRICTED TO ID) IVPB ONE ×2 (02:25→10:17)
[2021-07-24] MEDS: MEROPENEM 1 GM in DEXTROSE 5%-WATER 100 ML IVPB SCH ×2 (02:36→10:35)
[2021-07-24 02:55] LABS: CHOLESTEROL 156 mg/dL (50-200)
[2021-07-24 02:56] LABS: LDL CHOLESTEROL (ONLY SJRH) 103 mg/dL (5-100); TRIGLYCERIDES 92 mg/dL (0-150)
[2021-07-24 02:57] LABS: HDL CHOLESTEROL 33 mg/dL (40-60)
[2021-07-24] MEDS ORDERED: SODIUM CHLORIDE 1,000 ML IV SCH ×2 (03:39→12:30)
[2021-07-24 03:49] LABS: ANISOCYTOSIS 1+; MACROCYTOSIS 0; PLATELET ESTIMATE NORMAL
[2021-07-24 06:54] LABS: BLOOD UREA NITROGEN 13.9 mg/dL (7-18); CALCIUM 7.6 mg/dL (8.5-10.1)
[2021-07-24 06:55] LABS: MAGNESIUM 1.5 mg/dL (1.8-2.4)
[2021-07-24 06:58] LABS: CREATININE 1.3 mg/dL (0.55-1.3); PHOSPHOROUS 2.4 mg/dL (2.5-4.9)
[2021-07-24 06:59] LABS: BILIRUBIN,TOTAL 0.7 mg/dL (0.2-1)
[2021-07-24 07:13] LABS: ALBUMIN 2.5 g/dl (3.4-5.0)
[2021-07-24] MEDS ORDERED: MAGNESIUM SULF 50% (8.12 MEQ/2 ML-1 GM VIAL) IVPB ONE (07:27)
[2021-07-24] MEDS ORDERED: MAGNESIUM SULFATE IN WATER 2 GM/50 ML IVPB IVPB ONE (07:37)
[2021-07-24] MEDS ORDERED: APIXABAN 5 MG TABLET ONE (10:18)
[2021-07-24] MEDS ORDERED: amLODIPine BESYLATE 5 MG TABLET (FP) ONE (10:18)
[2021-07-24] MEDS ORDERED: levETIRAcetam 500 MG TABLET (FP) PO ONE (10:19)
[2021-07-24] MEDS ORDERED: PT OWN MED DRAWER 7, Y5N ONE ×2 (10:20→21:04)
[2021-07-24] MEDS: APIXABAN 5 MG TABLET PO SCH ×2 (10:35→21:29)
[2021-07-24] MEDS: amLODIPine BESYLATE 10 MG TABLET (FP) PO SCH (10:35)
[2021-07-24] MEDS: levETIRAcetam 500 MG TABLET (FP) PO SCH ×2 (10:35→21:30)
[2021-07-24] MEDS: OXcarbazepine 300 MG TABLET (UD) PO SCH ×2 (11:30→21:30)
[2021-07-24] MEDS: PIPERACILLIN/TAZOB 3.375 GM 3.375 GM in DEXTROSE 5%-WATER - 50 ML IVPB SCH ×2 (14:38→17:24)
[2021-07-24] MEDS ORDERED: PIPERACILLIN/TAZOB 3.375 GM 3.375 GM/50 ML BAG IVPB ONE (14:52)
[2021-07-24 15:54] VITALS: BMI 27.2
[2021-07-24] MEDS ORDERED: PIPERACILLIN/TAZOBACTAM 3.375 GM VIAL IVPB ONE (17:07)
[2021-07-24] MEDS ORDERED: DEXTROSE 5%-WATER - 50 ML IVPB ONE (17:07)
[2021-07-24] MEDS ORDERED: MEROPENEM 1 GM in DEXTROSE 5%-WATER 100 ML IVPB SCH (18:00)
[2021-07-25] MEDS ORDERED: PIPERACILLIN/TAZOBACTAM 3.375 GM VIAL IVPB ONE ×3 (01:11→18:13)
[2021-07-25] MEDS ORDERED: DEXTROSE 5%-WATER - 50 ML IVPB ONE ×3 (01:11→18:13)
[2021-07-25] MEDS: PIPERACILLIN/TAZOB 3.375 GM 3.375 GM in DEXTROSE 5%-WATER - 50 ML IVPB SCH ×3 (01:29→18:20)
[2021-07-25 08:23] LABS: HEMATOCRIT 32.7 % (35.4-49); MCH 30.2 pg (25.7-33.7); MCHC 33.7 g/dl (32.0-35.9); MEAN CELL VOLUME 89.5 fl (80-96); MEAN PLT VOLUME 7.5 fl (7.5-11.1); PLATELET COUNT 201 10^3/uL (134-434); RBC 3.66 M/mm3 (4.00-5.60); RDW 15.5 % (11.9-15.9); WHITE BLOOD COUNT 8.5 K/mm3 (4.0-10.0)
[2021-07-25 08:51] LABS: BLOOD UREA NITROGEN 8.5 mg/dL (7-18); CALCIUM 7.9 mg/dL (8.5-10.1); MAGNESIUM 2.1 mg/dL (1.8-2.4)
[2021-07-25 08:54] LABS: CREATININE 1.1 mg/dL (0.55-1.3); PHOSPHOROUS 2.6 mg/dL (2.5-4.9)
[2021-07-25] MEDS ORDERED: PT OWN MED DRAWER 7, Y5N ONE ×3 (09:02→20:59)
[2021-07-25] MEDS: amLODIPine BESYLATE 10 MG TABLET (FP) PO SCH (09:20)
[2021-07-25] MEDS: OXcarbazepine 300 MG TABLET (UD) PO SCH ×2 (09:20→21:37)
[2021-07-25] MEDS: levETIRAcetam 500 MG TABLET (FP) PO SCH ×2 (09:20→21:37)
[2021-07-25] MEDS: APIXABAN 5 MG TABLET PO SCH ×2 (09:20→21:37)
[2021-07-25 11:47] LABS: ANISOCYTOSIS 0; MACROCYTOSIS 0; PLATELET ESTIMATE NORMAL
[2021-07-26] MEDS ORDERED: PIPERACILLIN/TAZOBACTAM 3.375 GM VIAL IVPB ONE (01:06)
[2021-07-26] MEDS ORDERED: DEXTROSE 5%-WATER - 50 ML IVPB ONE (01:06)
[2021-07-26] MEDS: PIPERACILLIN/TAZOB 3.375 GM 3.375 GM in DEXTROSE 5%-WATER - 50 ML IVPB SCH (02:42)
[2021-07-26] MEDS ORDERED: PT OWN MED DRAWER 7, Y5N ONE ×2 (09:56→21:54)
[2021-07-26] MEDS: OXcarbazepine 300 MG TABLET (UD) PO SCH ×2 (10:44→21:55)
[2021-07-26] MEDS: levETIRAcetam 500 MG TABLET (FP) PO SCH ×2 (10:44→21:55)
[2021-07-26] MEDS: amLODIPine BESYLATE 10 MG TABLET (FP) PO SCH (10:44)
[2021-07-26] MEDS: APIXABAN 5 MG TABLET PO SCH ×2 (10:45→21:55)
[2021-07-26] MEDS: ERTAPENEM SODIUM 1 GM in SODIUM CHLORIDE 50 ML IVPB SCH (13:03)
[2021-07-27] MEDS ORDERED: ACETAMINOPHEN 325 MG TABLET (FP) PO ONE (00:27)
[2021-07-27] MEDS ORDERED: PT OWN MED DRAWER 7, Y5N ONE (10:08)
[2021-07-27] MEDS: levETIRAcetam 500 MG TABLET (FP) PO SCH ×2 (10:13→22:28)
[2021-07-27] MEDS: APIXABAN 5 MG TABLET PO SCH ×2 (10:14→22:28)
[2021-07-27] MEDS: amLODIPine BESYLATE 10 MG TABLET (FP) PO SCH (10:14)
[2021-07-27] MEDS: OXcarbazepine 300 MG TABLET (UD) PO SCH ×2 (10:14→22:28)
[2021-07-27 10:42] LABS: HEMATOCRIT 36.3 % (35.4-49); HEMOGLOBIN 12.5 GM/dL (11.7-16.9); MCH 30.8 pg (25.7-33.7); MCHC 34.5 g/dl (32.0-35.9); MEAN CELL VOLUME 89.3 fl (80-96); PLATELET COUNT 301 10^3/uL (134-434); RBC 4.07 M/mm3 (4.00-5.60); RDW 15.5 % (11.9-15.9); WHITE BLOOD COUNT 5.2 K/mm3 (4.0-10.0)
[2021-07-27 11:08] LABS: BLOOD UREA NITROGEN 8.2 mg/dL (7-18); CALCIUM 8.8 mg/dL (8.5-10.1)
[2021-07-27 11:11] LABS: CREATININE 1.2 mg/dL (0.55-1.3)
[2021-07-27] MEDS: ERTAPENEM SODIUM 1 GM in SODIUM CHLORIDE 50 ML IVPB SCH (11:48)
[2021-07-28] MEDS ORDERED: PT OWN MED DRAWER 7, Y5N ONE ×2 (10:25→21:09)
[2021-07-28] MEDS: APIXABAN 5 MG TABLET PO SCH ×2 (10:34→21:11)
[2021-07-28] MEDS: OXcarbazepine 300 MG TABLET (UD) PO SCH ×2 (10:37→21:11)
[2021-07-28] MEDS: levETIRAcetam 500 MG TABLET (FP) PO SCH ×2 (10:37→21:11)
[2021-07-28] MEDS: ERTAPENEM SODIUM 1 GM in SODIUM CHLORIDE 50 ML IVPB SCH (10:37)
[2021-07-28] MEDS: amLODIPine BESYLATE 10 MG TABLET (FP) PO SCH (10:37)
[2021-07-29] MEDS ORDERED: PT OWN MED DRAWER 7, Y5N ONE ×3 (09:31→21:15)
[2021-07-29] MEDS: amLODIPine BESYLATE 10 MG TABLET (FP) PO SCH (09:38)
[2021-07-29] MEDS: ERTAPENEM SODIUM 1 GM in SODIUM CHLORIDE 50 ML IVPB SCH (09:38)
[2021-07-29] MEDS: OXcarbazepine 300 MG TABLET (UD) PO SCH ×2 (09:38→21:17)
[2021-07-29] MEDS: APIXABAN 5 MG TABLET PO SCH ×2 (09:38→21:17)
[2021-07-29] MEDS: levETIRAcetam 500 MG TABLET (FP) PO SCH ×2 (09:40→21:17)
[2021-07-30] MEDS ORDERED: PT OWN MED DRAWER 7, Y5N ONE (09:20)
[2021-07-30 09:31] LABS: BLOOD UREA NITROGEN 12.9 mg/dL (7-18); CALCIUM 8.6 mg/dL (8.5-10.1)
[2021-07-30 09:35] LABS: CREATININE 1.1 mg/dL (0.55-1.3)
[2021-07-30] MEDS: levETIRAcetam 500 MG TABLET (FP) PO SCH (09:37)
[2021-07-30] MEDS: amLODIPine BESYLATE 10 MG TABLET (FP) PO SCH (09:37)
[2021-07-30] MEDS: APIXABAN 5 MG TABLET PO SCH (09:37)
[2021-07-30] MEDS: OXcarbazepine 300 MG TABLET (UD) PO SCH (09:38)
[2021-07-30 09:54] VITALS: BP 133/77; PULSE 64; TEMP 97.7
[2021-07-30] MEDS: ERTAPENEM SODIUM 1 GM in SODIUM CHLORIDE 50 ML IVPB SCH (12:38)
== END 2021-07-30 16:52 | disposition home or self-care (01) | DRG 689 ==
LOC: JER 14:44 → JERBED 20:17 → J4S 07-24 15:06 → J5S 07-25 13:46
PROVIDERS: ADMIT Internal Medicine
DX: N39.0 Urinary tract infection, site not specified (principal); G93.41 Metabolic encephalopathy; N17.9 Acute kidney failure, unspecified; I48.91 Unspecified atrial fibrillation; Z79.01 Long term (current) use of anticoagulants; I10 Essential (primary) hypertension; G40.909 Epilepsy, unspecified, not intractable, without status epilepticus; G93.89 Other specified disorders of brain; R47.1 Dysarthria and anarthria; N28.1 Cyst of kidney, acquired
CPT/HCPCS: 36415; 70450-TC; 70551-TC; 71045-TC-FY; 76775-TC; 80048; 80053; 80061; 81003; 82550; 82553; 83036; 83735; 84100; 84443; 84484; 85025; 85027; 85610; 85730; 86850; 86900; 86901; 87040; 87086; 87186; 87899; 93005; 93010; 97116-GP; 97161-GP; 99285-25; C9803; U0003; U0005

== ENCOUNTER 2022-05-30 12:27 | Inpatient (IN) | payer OTHER ==
[2022-05-30 12:38] VITALS: BMI 29.5
[2022-05-30 14:19] LABS: EPI CELLS 11 /uL (0-25.1); HYALINE CASTS 0 /uL (0-3.1); PH,URINE 5.5 (5.0-8.0); URINE APPEARANCE TURBID; URINE BACTERIA >9,000 /uL (0-1359); URINE BILIRUBIN NEGATIVE (NEGATIVE); URINE COLOR YELLOW; URINE GLUCOSE (UA) NEGATIVE (NEGATIVE); URINE KETONE TRACE (NEGATIVE); URINE LEUK ESTERASE 3+ (NEGATIVE); URINE NITRITE NEGATIVE (NEGATIVE); URINE PROTEIN 2+ (NEGATIVE); URINE RBC 35 /uL (0-23.9); URINE UROBILINOGEN 0.2 mg/dL (0.2-1.0); URINE WBC 3667 /uL (0-25.8)
[2022-05-30] MEDS ORDERED: MEROPENEM 1 GM in DEXTROSE 5%-WATER 100 ML IVPB ONE (15:00)
[2022-05-30 15:02] LABS: BASO % 0.5 % (0-2.0); EOS % 0.1 % (0-4.5); HEMATOCRIT 41.8 % (35.4-49); HEMOGLOBIN 13.8 GM/dL (11.7-16.9); MCH 29.9 pg (25.7-33.7); MEAN CELL VOLUME 90.6 fl (80-96); MEAN PLT VOLUME 7.7 fl (7.5-11.1); NEUT % 76.4 % (42.8-82.8); PLATELET COUNT 260 10^3/uL (134-434); RBC 4.61 M/mm3 (4.00-5.60); RDW 13.8 % (11.9-15.9); WHITE BLOOD COUNT 15.6 K/mm3 (4.0-10.0)
[2022-05-30 15:12] LABS: INR 1.15 (0.83-1.09); PROTHROMBIN TIME (PATIENT) 13.2 SEC (9.7-13.0)
[2022-05-30 15:15] LABS: ACTIVATED PTT 28.6 SECONDS (25.2-36.5)
[2022-05-30] MEDS ORDERED: MEROPENEM 1 GM VIAL (RESTRICTED TO ID) IVPB ONE (15:17)
[2022-05-30 15:21] LABS: BLOOD UREA NITROGEN 27.4 mg/dL (7-18); CALCIUM 8.8 mg/dL (8.5-10.1)
[2022-05-30 15:24] LABS: CREATININE 2.1 mg/dL (0.55-1.3)
[2022-05-30 15:26] LABS: BILIRUBIN,TOTAL 0.6 mg/dL (0.2-1); TOT PROT 8.6 g/dl (6.4-8.2)
[2022-05-30] MEDS ORDERED: SODIUM CHLORIDE 0.9% 500 ML INFUS.BAG IV ONE (15:51)
[2022-05-30 16:04] LABS: VENOUS BASE EXCESS -1.1 mmol/L (-2-2); VENOUS O2 SATURATION 58.1 % (70-80); VENOUS PCO2 42.7 mmHg (38-52); VENOUS PH 7.371 (7.310-7.410)
[2022-05-30] MEDS: DEXTROSE 5%-NORMAL SALINE 1,000 ML IV SCH (18:32)
[2022-05-30] MEDS ORDERED: APIXABAN 5 MG TABLET ONE (22:04)
[2022-05-30] MEDS ORDERED: levETIRAcetam 500 MG TABLET (FP) PO ONE (22:04)
[2022-05-30] MEDS: APIXABAN 5 MG TABLET PO SCH (22:07)
[2022-05-30] MEDS: levETIRAcetam 500 MG TABLET (FP) PO SCH (22:07)
[2022-05-30] MEDS: OXcarbazepine 300 MG TABLET (UD) PO SCH (22:12)
[2022-05-31] MEDS ORDERED: ACETAMINOPHEN 325 MG TABLET (FP) PO ONE (05:29)
[2022-05-31] MEDS ORDERED: ACETAMINOPHEN 325 MG TABLET (FP) ONE (05:33)
[2022-05-31] MEDS ORDERED: PANTOPRAZOLE 40 MG TABLET PO ONE (10:16)
[2022-05-31] MEDS ORDERED: ERTAPENEM SODIUM 1 GM VIAL ONE (10:17)
[2022-05-31] MEDS ORDERED: amLODIPine BESYLATE 10 MG TABLET (FP) ONE (10:17)
[2022-05-31] MEDS ORDERED: APIXABAN 5 MG TABLET ONE (10:17)
[2022-05-31] MEDS ORDERED: levETIRAcetam 500 MG TABLET (FP) PO ONE (10:17)
[2022-05-31] MEDS: levETIRAcetam 500 MG TABLET (FP) PO SCH ×2 (10:34→21:46)
[2022-05-31] MEDS: APIXABAN 5 MG TABLET PO SCH (10:34)
[2022-05-31] MEDS: OXcarbazepine 300 MG TABLET (UD) PO SCH ×2 (10:34→23:15)
[2022-05-31] MEDS: ERTAPENEM SODIUM 1 GM in SODIUM CHLORIDE 50 ML IVPB SCH (10:35)
[2022-05-31] MEDS: PANTOPRAZOLE 40 MG TABLET PO SCH (10:37)
[2022-05-31] MEDS: OMEGA-3 ACID ETHYL ESTERS (FATTY-ACIDS) 1 GM CAPSULE (FP) PO SCH (10:37)
[2022-05-31] MEDS: amLODIPine BESYLATE 10 MG TABLET (FP) PO SCH (10:37)
[2022-05-31 10:50] LABS: HEMATOCRIT 38.2 % (35.4-49); HEMOGLOBIN 12.5 GM/dL (11.7-16.9); MCHC 32.8 g/dl (32.0-35.9); MEAN CELL VOLUME 91.6 fl (80-96); MEAN PLT VOLUME 7.7 fl (7.5-11.1); PLATELET COUNT 214 10^3/uL (134-434); RBC 4.17 M/mm3 (4.00-5.60); RDW 13.4 % (11.9-15.9); WHITE BLOOD COUNT 9.9 K/mm3 (4.0-10.0)
[2022-05-31 11:17] LABS: ALBUMIN 3.4 g/dl (3.4-5.0); BLOOD UREA NITROGEN 19.3 mg/dL (7-18); CALCIUM 8.5 mg/dL (8.5-10.1)
[2022-05-31 11:20] LABS: CREATININE 1.2 mg/dL (0.55-1.3)
[2022-05-31 11:22] LABS: BILIRUBIN,TOTAL 0.6 mg/dL (0.2-1); TOT PROT 7.5 g/dl (6.4-8.2)
[2022-05-31] MEDS: DEXTROSE 5%-NORMAL SALINE 1,000 ML IV SCH ×2 (15:29→21:45)
[2022-05-31] MEDS: HEPARIN NA (PORCINE) 5,000 UNITS/ML 1ML VIAL SQ SCH (21:46)
[2022-06-01] MEDS: DEXTROSE 5%-NORMAL SALINE 1,000 ML IV SCH ×2 (05:53→17:36)
[2022-06-01] MEDS: HEPARIN NA (PORCINE) 5,000 UNITS/ML 1ML VIAL SQ SCH ×3 (06:31→21:25)
[2022-06-01 09:18] LABS: BASO % 0.9 % (0-2.0); EOS % 3.6 % (0-4.5); HEMATOCRIT 34.3 % (35.4-49); HEMOGLOBIN 11.6 GM/dL (11.7-16.9); LYMPH % 26.8 % (8-40); MCH 30.5 pg (25.7-33.7); MCHC 33.9 g/dl (32.0-35.9); MEAN CELL VOLUME 89.7 fl (80-96); MEAN PLT VOLUME 7.8 fl (7.5-11.1); MONO % 10.2 % (3.8-10.2); NEUT % 58.5 % (42.8-82.8); PLATELET COUNT 223 10^3/uL (134-434); RBC 3.82 M/mm3 (4.00-5.60); RDW 13.6 % (11.9-15.9)
[2022-06-01 09:21] LABS: CALCIUM 8.2 mg/dL (8.5-10.1)
[2022-06-01 09:22] LABS: ALBUMIN 2.8 g/dl (3.4-5.0); BLOOD UREA NITROGEN 16.5 mg/dL (7-18); MAGNESIUM 2.2 mg/dL (1.8-2.4)
[2022-06-01 09:24] LABS: CREATININE 1.1 mg/dL (0.55-1.3)
[2022-06-01 09:25] LABS: PHOSPHOROUS 2.2 mg/dL (2.5-4.9)
[2022-06-01 09:26] LABS: BILIRUBIN,TOTAL 0.4 mg/dL (0.2-1); TOT PROT 6.5 g/dl (6.4-8.2)
[2022-06-01] MEDS: levETIRAcetam 500 MG TABLET (FP) PO SCH ×2 (09:29→21:26)
[2022-06-01] MEDS: PANTOPRAZOLE 40 MG TABLET PO SCH (09:31)
[2022-06-01] MEDS: OXcarbazepine 300 MG TABLET (UD) PO SCH ×2 (09:31→21:26)
[2022-06-01] MEDS: OMEGA-3 ACID ETHYL ESTERS (FATTY-ACIDS) 1 GM CAPSULE (FP) PO SCH (09:31)
[2022-06-01] MEDS: amLODIPine BESYLATE 10 MG TABLET (FP) PO SCH (09:32)
[2022-06-01] MEDS: ERTAPENEM SODIUM 1 GM in SODIUM CHLORIDE 50 ML IVPB SCH (11:20)
[2022-06-01] MEDS: NAPH,MB-DB/K PH,MBDB POWDER PACKET PO SCH ×3 (11:20→21:26)
[2022-06-02] MEDS: NAPH,MB-DB/K PH,MBDB POWDER PACKET PO SCH ×3 (06:27→22:26)
[2022-06-02] MEDS: HEPARIN NA (PORCINE) 5,000 UNITS/ML 1ML VIAL SQ SCH ×3 (06:29→22:26)
[2022-06-02 09:05] LABS: BASO % 1.2 % (0-2.0); EOS % 7.3 % (0-4.5); HEMOGLOBIN 12.6 GM/dL (11.7-16.9); LYMPH % 33.9 % (8-40); MCH 30.3 pg (25.7-33.7); MCHC 33.9 g/dl (32.0-35.9); MEAN CELL VOLUME 89.4 fl (80-96); MEAN PLT VOLUME 7.4 fl (7.5-11.1); MONO % 9.3 % (3.8-10.2); NEUT % 48.3 % (42.8-82.8); PLATELET COUNT 269 10^3/uL (134-434); RBC 4.14 M/mm3 (4.00-5.60); RDW 13.6 % (11.9-15.9)
[2022-06-02 09:21] LABS: CALCIUM 8.4 mg/dL (8.5-10.1)
[2022-06-02 09:22] LABS: ALBUMIN 3.2 g/dl (3.4-5.0); BLOOD UREA NITROGEN 13.4 mg/dL (7-18); MAGNESIUM 2.1 mg/dL (1.8-2.4)
[2022-06-02 09:25] LABS: PHOSPHOROUS 2.8 mg/dL (2.5-4.9)
[2022-06-02 09:26] LABS: BILIRUBIN,TOTAL 0.3 mg/dL (0.2-1); TOT PROT 7.1 g/dl (6.4-8.2)
[2022-06-02] MEDS: OMEGA-3 ACID ETHYL ESTERS (FATTY-ACIDS) 1 GM CAPSULE (FP) PO SCH (09:37)
[2022-06-02] MEDS: ERTAPENEM SODIUM 1 GM in SODIUM CHLORIDE 50 ML IVPB SCH (09:37)
[2022-06-02] MEDS: PANTOPRAZOLE 40 MG TABLET PO SCH (09:37)
[2022-06-02] MEDS: OXcarbazepine 300 MG TABLET (UD) PO SCH ×2 (09:37→22:26)
[2022-06-02] MEDS: amLODIPine BESYLATE 10 MG TABLET (FP) PO SCH (09:37)
[2022-06-02] MEDS: levETIRAcetam 500 MG TABLET (FP) PO SCH ×2 (09:38→22:26)
[2022-06-02] MEDS: DEXTROSE 5%-NORMAL SALINE 1,000 ML IV SCH (17:52)
[2022-06-03] MEDS: HEPARIN NA (PORCINE) 5,000 UNITS/ML 1ML VIAL SQ SCH ×2 (06:21→14:29)
[2022-06-03] MEDS: NAPH,MB-DB/K PH,MBDB POWDER PACKET PO SCH ×2 (06:21→14:29)
[2022-06-03 08:32] VITALS: RESP 20
[2022-06-03] MEDS: amLODIPine BESYLATE 10 MG TABLET (FP) PO SCH (09:59)
[2022-06-03] MEDS: levETIRAcetam 500 MG TABLET (FP) PO SCH (09:59)
[2022-06-03] MEDS: PANTOPRAZOLE 40 MG TABLET PO SCH (10:00)
[2022-06-03] MEDS: OMEGA-3 ACID ETHYL ESTERS (FATTY-ACIDS) 1 GM CAPSULE (FP) PO SCH (10:00)
[2022-06-03] MEDS: OXcarbazepine 300 MG TABLET (UD) PO SCH (10:01)
[2022-06-03] MEDS: ERTAPENEM SODIUM 1 GM in SODIUM CHLORIDE 50 ML IVPB SCH (10:24)
[2022-06-03 10:26] LABS: BASO % 0.9 % (0-2.0); EOS % 7.9 % (0-4.5); HEMATOCRIT 36.5 % (35.4-49); HEMOGLOBIN 12.2 GM/dL (11.7-16.9); LYMPH % 32.6 % (8-40); MCH 29.9 pg (25.7-33.7); MCHC 33.4 g/dl (32.0-35.9); MEAN CELL VOLUME 89.6 fl (80-96); MEAN PLT VOLUME 8.3 fl (7.5-11.1); MONO % 7.5 % (3.8-10.2); NEUT % 51.1 % (42.8-82.8); PLATELET COUNT 271 10^3/uL (134-434); RBC 4.07 M/mm3 (4.00-5.60); RDW 13.6 % (11.9-15.9); WHITE BLOOD COUNT 6.2 K/mm3 (4.0-10.0)
[2022-06-03 10:44] LABS: BLOOD UREA NITROGEN 12.7 mg/dL (7-18); CALCIUM 8.3 mg/dL (8.5-10.1)
[2022-06-03 10:45] LABS: MAGNESIUM 1.9 mg/dL (1.8-2.4)
[2022-06-03 10:49] LABS: BILIRUBIN,TOTAL 0.2 mg/dL (0.2-1); TOT PROT 7.1 g/dl (6.4-8.2)
[2022-06-03 16:03] VITALS: BP 122/73; PULSE 64; TEMP 98.3
== END 2022-06-03 16:00 | disposition home or self-care (01) | DRG 689 ==
LOC: JER 12:27 → JERBED 15:57 → J8W 05-31 14:40
PROVIDERS: ADMIT Internal Medicine; ATTEND Internal Medicine
DX: N39.0 Urinary tract infection, site not specified (principal); G93.41 Metabolic encephalopathy; N17.9 Acute kidney failure, unspecified; I48.91 Unspecified atrial fibrillation; Z79.01 Long term (current) use of anticoagulants; I10 Essential (primary) hypertension; G40.909 Epilepsy, unspecified, not intractable, without status epilepticus; B96.20 Unspecified Escherichia coli [E. coli] as the cause of diseases classified elsewhere; R41.82 Altered mental status, unspecified
CPT/HCPCS: 0241U-QW; 36415; 70450-TC; 71045-TC-FY; 76775-TC; 80053; 81003; 82803; 82962; 83735; 84100; 84484; 85025; 85027; 85610; 85730; 87040; 87086; 87186; 93005; 93010; 97116-GP; 97161-GP; 99285-25; J1644

== ENCOUNTER 2022-09-21 12:40 | Emergency (ER) | payer OTHER ==
[2022-09-21 12:44] VITALS: BP 126/65; PULSE 70; RESP 18; TEMP 98.6; BMI 29.5
[2022-09-21 17:02] LABS: PH,URINE 5.5 (5.0-8.0); URINE APPEARANCE CLEAR; URINE BILIRUBIN NEGATIVE (NEGATIVE); URINE COLOR YELLOW; URINE GLUCOSE (UA) NEGATIVE (NEGATIVE); URINE KETONE NEGATIVE (NEGATIVE); URINE LEUK ESTERASE NEGATIVE (NEGATIVE); URINE NITRITE NEGATIVE (NEGATIVE); URINE PROTEIN NEGATIVE (NEGATIVE); URINE UROBILINOGEN 0.2 mg/dL (0.2-1.0)
== END 2022-09-21 17:34 | disposition home or self-care (01) ==
LOC: JERFT 12:40
DX: N48.1 Balanitis (principal)
CPT/HCPCS: 81003; 87086; 99283-25